=== PATIENT | male | born 1985 | race Caucasian/White ===

== ENCOUNTER 2018-03-30 09:49 | Inpatient (IN) | payer OTHER ==
[2018-03-30 09:49] VITALS: BMI 24.3
--- NOTE | 2018-03-30 10:22 | C.PDOC ---
History Of Present Illness 32 y/o male comes in requesting heroin detox. States last use was this morning. Patient also admits to use of cocaine and marijuana. Patient has no physical complaints. Time Seen by Provider: 03/30/18 10:21 Chief Complaint (Nursing): Substance Abuse History Per: Patient History/Exam Limitations: no limitations Onset/Duration Of Symptoms: Days Current Symptoms Are (Timing): Still Present Past Medical History Reviewed: Historical Data, Nursing Documentation, Vital Signs Vital Signs: Last Vital Signs Temp 97.9 F 03/30/18 09:55 Pulse 67 03/30/18 09:55 Resp 16 03/30/18 09:55 BP 109/70 03/30/18 09:55 Pulse Ox 99 03/30/18 09:55 - Medical History PMH: Asthma, Depression, HIV - [facility] APPLICATION OF SPLINT (08/29/12) INJECT/INFUSE NEC (09/05/13) Family History: States: No Known Family Hx - Social History Hx Tobacco Use: Yes Hx Alcohol Use: Yes Hx Substance Use: Yes (OPIODS) Review Of Systems Except As Marked, All Systems Reviewed And Found Negative. Constitutional: Negative for: Fever Cardiovascular: Negative for: Chest Pain Respiratory: Negative for: Shortness of Breath Gastrointestinal: Negative for: Vomiting Skin: Negative for: Rash Psych: Positive for: Other (Heroin use). Negative for: Suicidal ideation (or homicidal ideation) Physical Exam - Physical Exam Appears: Non-toxic, No Acute Distress Skin: Warm, Dry Head: Atraumatic, Normacephalic Eye(s): bilateral: Normal Inspection Oral Mucosa: Moist Neck: Supple Chest: Symmetrical Cardiovascular: Rhythm Regular, No Murmur Respiratory: Normal Breath Sounds, No Rales, No Rhonchi, No Wheezing Gastrointestinal/Abdominal: Soft, No Tenderness Extremity: Bilateral: Atraumatic, Normal Color And Temperature, Normal ROM Neurological/Psych: Oriented x3, Normal Speech ED Course And Treatment - Laboratory Results Result Diagrams: 03/30/18 11:31 03/30/18 11:31 O2 Sat by Pulse Oximetry: 99 (RA) Pulse Ox Interpretation: Normal Progress Note: Bloodwork and UA ordered. Reevaluation Time: 13:14 Reassessment Condition: Unchanged (MED CLEAR FOR DETOX) Disposition Counseled Patient/Family Regarding: Studies Performed, Diagnosis - Disposition Disposition: HOSPITALIZED Disposition Time: 13:14 Condition: STABLE Forms: [facility] (Lao) - POA Present On Arrival: None - Clinical Impression Clinical Impression: Opiate dependence - Scribe Statement The provider has reviewed the documentation as recorded by the Scribe Arely Ponce Provider Attestation: All medical record entries made by the Scribe were at my direction and personally dictated by me. I have reviewed the chart and agree that the record accurately reflects my personal performance of the history, physical exam, medical decision making, and the department course for this patient. I have also personally directed, reviewed, and agree with the discharge instructions and disposition.
[2018-03-30 11:40] LABS: BASO % 0.8 % (0.0-2.0); EOS # 0.2 K/uL (0.0-0.7); EOS % 2.9 % (0.0-4.0); HEMOGLOBIN 13.7 g/dL (12.0-18.0); LYMPH # 0.9 K/uL (1.0-4.3); LYMPH % 17.8 % (20.0-40.0); MEAN CELL VOLUME 88.3 fL (80.0-94.0); MEAN CORPUSCULAR HEMOGLOBIN 29.8 pg (27.0-31.0); MEAN CORPUSCULAR HGB CONC 33.7 g/dL (33.0-37.0); MEAN PLATELET VOLUME 7.9 fL (7.2-11.7); MONO # 0.3 K/uL (0.0-0.8); NEUT # 3.8 K/uL (1.8-7.0); NEUT % 72.5 % (50.0-75.0); RBC 4.61 Mil/uL (4.40-5.90); RED CELL DISTRIBUTION WIDTH 14.4 % (11.5-14.5); WHITE BLOOD COUNT 5.2 K/uL (4.8-10.8)
[2018-03-30 11:55] LABS: ALB/GLOB RATIO 0.9 (1.0-2.1); ALBUMIN 3.5 g/dL (3.5-5.0); ALT/SGPT 47 U/L (21-72); AST/SGOT 48 U/L (17-59); BLOOD UREA NITROGEN 14 mg/dL (9-20); CALCIUM 8.6 mg/dl (8.6-10.4); GFR NON-AFRICAN AMERICAN > 60
[2018-03-30 12:06] LABS: URINE BILIRUBIN NEGATIVE (NEGATIVE); URINE BLOOD NEGATIVE (NEGATIVE); URINE CLARITY Clear (Clear); URINE COLOR Yellow (YELLOW); URINE GLUCOSE (UA) NORMAL (Normal); URINE LEUKOCYTE ESTERASE NEG Leu/uL (Negative); URINE PROTEIN NEGATIVE (NEGATIVE); URINE UROBILINOGEN NORMAL mg/dL (0.2-1.0)
[2018-03-30 12:46] LABS: BARBITURATES, UR NEGATIVE (NEGATIVE); BENZODIAZEPINES, UR NEGATIVE (NEGATIVE); PHENCYCLIDINE, UR NEGATIVE (NEGATIVE)
[2018-03-30 13:09] LABS: OPIATES, UR POSITIVE (NEGATIVE)
--- NOTE | 2018-03-30 14:21 | PCM.PSYCH ---
Initial Psychiatric Evaluation - Initial Psychiatric Evaluation Type of Admission: Voluntary Legal Status: Capacity Chief Complaint (in patient's own words): I want to quit using heroine. 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 Patient states he is currently asymptomatic; however, he has been using about 12- 14 bags of IV heroine for the past 9 months after a period of 2-3 years of no heroine use. Patient states he additionally states he uses about 1g of cocaine a week and cannabis use. Patient admits to about 1/2 pack of daily cigarette use. Patient states he quit about 2 years ago through a detox program and was clean up until 9 months ago. Patient has a history of HIV, currently with a undetectable viral load count. Patient receives care at [facility] in [place]. Patient is currently on once daily Genvoya. Patient states he has a psychiatric history of bipolar disorder/depression; saldana isabella, he has no psychiatric hospitalizations, and currently does not take any psychiatric medications. Patient denies allergies, previous surgeries, other drug use. Past Psychiatric History - Past Psychiatric History Previous Treatment History: Intensive Outpatient Pertinent Medical Hx (Current Medical&Sleep Prob, Allergies): Allergies Allergy/AdvReac Type Severity Reaction Status Date / Time No Known Allergies Allergy Verified 03/30/18 09:59 Elviteg/Cob/Emtri/Tenof Alafen [Genvoya Tablet] 1 each PO DAILY 03/30/18 Review of Systems - Constitutional Constitutional: absent: Fever, Chills, Sweats - Psychiatric Psychiatric: absent: Auditory Hallucinations, Change in Appetite, Confusion, Difficulty Concentrating, Hallucinations, Mood Swings, Panic Attacks Mental Status Examination - Personal Presentation Personal Presentation: Looks stated age - Affect Affect: Broad - Motor Activity Motor Activity: Calm - Reliability in Providing Information Reliability in Providing Information: Good - Speech Speech: Organized - Formal Thought Process Formal Thought Process: No Impairment - Obsessions/Compulsions Obsessions: No Compulsions: No - Cognitive Functions Orientation: Person, Place, Situation, Time Sensorium: Alert Attention/Concentration: Attentive DSM 5 DX - DSM 5 DSM 5 Diagnosis: Opiote use disorder, severe Cocaine use disorder, moderate Cannabis use disorder, moderate Nicotine use disorder, moderate History of Bipolar disorder History of HIV - Recommended/Plan of Treatment Treatment Recommendations and Plan of Treatment: Gabapentin for augmentation 300 BID PRN medications All risks, benefits and alternatives of the meds discussed, and the pt agreed and understood. Attend groups and activities Supportive therapy and psychoeducation [place] for abstinence CBT for relapse prevention Encourage MAT Refer to rehab or IOP, and self-help groups Teach healthy lifestyle methods, i.e. diet, exercise, meditation Smoking cessation with [place] Nicotine patch if needed
--- NOTE | 2018-03-30 14:44 | PCM.BM ---
<SulemanMonicaGretta Genesis - Last Filed: 03/30/18 14:46> Treatment Plan Problems - Problems identified on initial assessmt Denial Date Initiated: 03/30/18 Time Initiated: 14:42 Assessment reference: NA Status: Active Defensive Coping Date Initiated: 03/30/18 Assessment reference: NA Status: Active Hopelessness Date Initiated: 03/30/18 Assessment reference: NA Status: Active Treatment assets and liabiliti Patient Assests: adapts well, cooperative, insightful, self-reliant, negotiates basic needs, cognitively intact Patient Liabilities: relationship conflicts, substance abuse, medical problems - Milieu Protocol Maintain good personal hygiene: daily Encourage regular showers, daily Remind patient to perform daily oral care, daily Assist patient to perform ADL's, every shift Encourage regular showers, every shift Remind patient to perform daily oral care, every shift Assist patient to perform ADL's Conduct patient checks and document Observation sheet: Q15 minutes Maintain personal safety: daily Educate patient to report safety concerns to staff, daily Monitor environment for contraband/sharps, every shift Educate patient to report safety concerns to staff, every shift Monitor environment for contraband/sharps Medication safety: Monitor for expected outcome, potential side effects: daily, every shift, Assess barriers to learning: daily, every shift, Assess readiness for medication education: daily, every shift <Del Moy - Last Filed: 03/30/18 23:51> Treatment Plan Problems - Problems identified on initial assessmt Denial Date Initiated: 03/30/18 Time Initiated: 14:42 Assessment reference: NA Status: Active Defensive Coping Date Initiated: 03/30/18 Assessment reference: NA Status: Active Hopelessness Date Initiated: 03/30/18 Assessment reference: NA Status: Active Problem 1 Date Initiated: 03/30/18 Time Initiated: 14:42 Assessment reference: NA Status: Active Problem 2 Date Initiated: 03/30/18 Assessment reference: NA Status: Active Problem 3 Date Initiated: 03/30/18 Assessment reference: NA Status: Active - Diagnosis (1) Opiate dependence Status: Acute Interventions: 03/30/18 23:53 * Assess 7x/week regarding severity of withdrawal * Educate regarding risks, benefits, side effects and alternatives of medications * Use Motivational Interviewing for abstinence * Use CBT for relapse prevention * Medication management for withdrawal symptoms * Encourage medication assisted treatment * <Alma Nielsen - Last Filed: 03/31/18 13:11> Family Contact Family involvement: No known Family/SO - Goals for Treatment Patient goals for treatment: Complete detox and discuss aftercare options with counseling staff. Discharge/Continuing Care - Education Needs Education Needs: Patient Medication, Patient Diagnosis/Disease Process, Patient Coping Skills, Patient Anger Management skills, Patient Placement options, Patient Community resources - Discharge Discharge Criteria: No longer exhibiting s/s of withdrawal, Reduction of target symptoms Discharge to:: Other - Additional Comments 03/31/18 13:10 As of this writing, pt. is unsure of aftercare plan but will continue to explore options with counseling staff. - Treatment Team Participation Patient/Family/SO Statement: 03/31/18 13:10 "I don't really know yet..." Discussed with Family/SO: No Was Patient/Family/SO present at Treatment Team Meeting: Yes
[2018-03-30] MEDS ORDERED: Aluminum Hydroxide/Magnesium Hydroxide Susp (30 mL) PO PRN (15:00)
[2018-03-31 10:08] VITALS: RESP 18
--- NOTE | 2018-03-31 11:45 | CP.PCM.PN ---
Objective - Vital Signs/Intake and Output Vital Signs (last 24 hours): Temp Pulse Resp BP Pulse Ox 98.5 F 59 L 18 128/84 100 03/31/18 09:00 03/31/18 09:00 03/31/18 09:00 03/31/18 09:00 03/31/18 09:00 - Medications Medications: Current Medications Al Hydrox/Mg Hydrox/Simethicone (Maalox 30 Ml) 30 ml PO TID PRN PRN Reason: Indigestion / Heartburn Clonidine HCl (Catapres) 0.1 mg PO Q4 PRN PRN Reason: COWS Score More or Equal to 5 Last Admin: 03/30/18 17:07 Dose: 0.1 mg Gabapentin (Neurontin) 300 mg PO BID JENA Last Admin: 03/31/18 09:05 Dose: 300 mg Hydroxyzine HCl (Atarax) 50 mg PO Q6H PRN PRN Reason: Anxiety Last Admin: 03/31/18 10:17 Dose: 50 mg Ibuprofen (Motrin Tab) 600 mg PO Q6H PRN PRN Reason: Pain, moderate (4-7) Loperamide HCl (Imodium) 2 mg PO Q8 PRN PRN Reason: Diarrhea Methadone HCl (Methadone) 20 mg PO Q24H JENA; Taper Stop: 04/04/18 09:59 Last Admin: 03/31/18 09:04 Dose: 20 mg Ondansetron HCl (Zofran Tab) 4 mg PO Q8 PRN PRN Reason: Nausea/Vomiting Last Admin: 03/30/18 17:07 Dose: 4 mg Trazodone HCl (Desyrel) 100 mg PO HS PRN PRN Reason: Insomnia - Labs Labs: 03/30/18 11:31 03/30/18 11:31
[2018-03-31] MEDS ORDERED: GENVOYA PO SCH (14:00)
--- NOTE | 2018-03-31 14:21 | PCM.PYCHPN ---
Psychiatric Progress Note - Psychiatric Progress Note Patient seen today, length of contact: 16 Patient Chief Complaint: I want to quit using heroin. Problems Identified/Issues Discussed: Patient states he is feeling much better. Patient states he would like to start new pathways Medication Change: Yes Medical Record Reviewed: Yes Mental Status Examination - Cognitive Function Orientation: Person, Place, Situation, Time Memory: Intact Attention: WNL Concentration: WNL Association: WNL Fund of Knowledge: WNL - Mood Mood: Depressed - Affect Affect: Broad - Speech Speech: Appropriate - Formal Thought Process Formal Thought Process: No Impairment - Suicidal Ideation Suicidal Ideation: No - Homicidal Ideation Homicidal Ideation: No Goal/Treatment Plan - Goal/Treatment Plan Need for Continued Stay: Remain at risks for inpatient hospitalization Progress Toward Problem(s) and Goals/Treatment Plan: Gabapentin for augmentation 300 BID PRN medications All risks, benefits and alternatives of the meds discussed, and the pt agreed and understood. Attend groups and activities Supportive therapy and psychoeducation [place] for abstinence CBT for relapse prevention Encourage MAT Refer to rehab or IOP, and self-help groups Teach healthy lifestyle methods, i.e. diet, exercise, meditation Smoking cessation with [place] Nicotine patch if needed
[2018-03-31 14:35] VITALS: BP 107/70; PULSE 55; TEMP 99; O2SAT 97
--- NOTE | 2018-03-31 14:58 | PCM.PYCHDC ---
Mental Status Examination - Mental Status Examination Orientation: Person Discharge Summary - Discharge Note Consultations:: List each consultation separately and include: 1. Reason for request. 2. Findings. 3. Follow-up Summary of Hospital Course include:: 1. Description of specific treatment plan utilized for patients during their course of treatmen. 2. Summarize the time- course for resolution of acute symptoms and/or regressed behaviors. 3. Describe issues identified and worked on during hospitalization. 4. Describe medication utilized. 5. Describe medical problems identified and treated. 6. Reassessment of suicide risk - Diagnosis (1) Opiate dependence Current Visit: Yes Status: Acute - Final Diagnosis (DSM 5) Condition upon Discharge: STABLE Disposition: AGAINST MEDICAL ADVICE
== END 2018-03-31 15:00 | disposition left against medical advice (07) | DRG 743 ==
LOC: C.ER 09:49 → C.7D 13:14
PROVIDERS: ADMIT Psychiatry & Neurology Psychiatry; ATTEND Psychiatry & Neurology Psychiatry
DX: F11.20 Opioid dependence, uncomplicated (principal); F12.20 Cannabis dependence, uncomplicated; F14.20 Cocaine dependence, uncomplicated; F17.210 Nicotine dependence, cigarettes, uncomplicated; F31.9 Bipolar disorder, unspecified; J45.909 Unspecified asthma, uncomplicated